=== PATIENT | male | born 1990 | race American Indian/Alaskan Native ===

== ENCOUNTER 2020-02-16 21:01 | Emergency (ER) | payer OTHER ==
[2020-02-16] MEDS ORDERED: Cyclobenzaprine 10 MG Tab PO ONE (21:28)
[2020-02-16] MEDS ORDERED: Ibuprofen 800 MG Tab PO ONE (21:28)
[2020-02-16] MEDS ORDERED: Acetaminophen 500 MG Tab PO ONE (21:28)
--- NOTE | 2020-02-16 21:28 | EDM.PDOC ---
ED HPI GENERAL MEDICAL PROBLEM - General Stated Complaint: PAIN IN BACK/NECK Time Seen by Provider: 02/16/20 21:15 Source of Information: Reports: Patient History Limitations: Reports: No Limitations - History of Present Illness INITIAL COMMENTS - FREE TEXT/NARRATIVE: Patient presented to the ED because of neck pain radiating to the occipital area. He feels intense muscle spasm of his neck and shoulder. There is no fever/chills or headache. - Related Data Allergies Allergy/AdvReac Type Severity Reaction Status Date / Time No Known Allergies Allergy Verified 02/16/20 21:14 Home Meds: Home Meds Cyclobenzaprine [Flexeril] 10 mg PO Q8H PRN #30 tab 02/16/20 [Rx] Ibuprofen 800 mg PO Q8H PRN #30 tablet 02/16/20 [Rx] ED ROS GENERAL - Review of Systems Review Of Systems: See Below Constitutional: Reports: No Symptoms HEENT: Reports: No Symptoms Respiratory: Reports: No Symptoms Cardiovascular: Reports: No Symptoms Endocrine: Reports: No Symptoms GI/Abdominal: Reports: No Symptoms : Reports: No Symptoms Musculoskeletal: Reports: Neck Pain, Muscle Stiffness Skin: Reports: No Symptoms Neurological: Reports: No Symptoms Psychiatric: Reports: No Symptoms ED EXAM, GENERAL - Physical Exam Exam: See Below Exam Limited By: No Limitations General Appearance: Alert, No Apparent Distress Eye Exam: Bilateral Eye: PERRL Ears: Normal External Exam, Normal Canal Nose: Normal Inspection, Normal Mucosa Throat/Mouth: Normal Inspection, Normal Lips, Normal Teeth Head: Atraumatic, Normocephalic Neck: Normal Inspection, Supple, Non-Tender, Full Range of Motion Respiratory/Chest: No Respiratory Distress, Lungs Clear, Normal Breath Sounds Cardiovascular: Normal Peripheral Pulses, Regular Rate, Rhythm, No Edema, No Gallop, No JVD, No Murmur GI/Abdominal: Normal Bowel Sounds, Soft, Non-Tender, No Organomegaly Back Exam: Normal Inspection, Full Range of Motion, Muscle Spasm Neurological: Alert, Oriented, CN II-XII Intact, Normal Cognition Course - Vital Signs Text/Narrative:: Flexeril 10 mg po x1 Ibuprofen 800 mg with tylenol 1000 mg po x1 Last Recorded V/S: Last Vital Signs Temp 36.7 C 02/16/20 21:10 Pulse 83 02/16/20 21:10 Resp 18 02/16/20 21:10 BP 134/90 08/15/20 21:10 Pulse Ox 93 L 02/16/20 21:10 Departure - Departure Time of Disposition: 22:00 Disposition: Home, Self-Care 01 Condition: Good Clinical Impression: Cervical strain, acute - Discharge Information Prescriptions: Cyclobenzaprine [Flexeril] 10 mg PO Q8H PRN #30 tab PRN Reason: Spasms Ibuprofen 800 mg PO Q8H PRN #30 tablet PRN Reason: Pain Sepsis Event Note (ED) - Focused Exam Vital Signs: Vital Signs Temp Pulse Resp BP Pulse Ox 02/16/20 21:10 36.7 C 83 18 134/90 93 L
== END 2020-02-16 21:50 | disposition home or self-care (01) ==
LOC: FB.ED 21:01
DX: S16.1XXA Strain of muscle, fascia and tendon at neck level, initial encounter (principal); X58.XXXA Exposure to other specified factors, initial encounter
CPT/HCPCS: 99283; A9270

== ENCOUNTER 2020-04-24 18:37 | Emergency (ER) | payer OTHER ==
[2020-04-24] MEDS ORDERED: Ketorolac 60 MG/2 ML SDV IM ONE (19:35)
[2020-04-24] MEDS ORDERED: predniSONE 10 MG Tab PO STA (19:35)
[2020-04-24] MEDS ORDERED: Cyclobenzaprine 10 MG Tab PO ONE (19:36)
--- NOTE | 2020-04-24 19:42 | EDM.PDOC ---
ED HPI GENERAL MEDICAL PROBLEM - General Chief Complaint: Back Pain or Injury Stated Complaint: SHARP PAIN IN LOWER BACK Time Seen by Provider: 04/24/20 19:15 Source of Information: Reports: Patient History Limitations: Reports: No Limitations - History of Present Illness INITIAL COMMENTS - FREE TEXT/NARRATIVE: slipped at work yesterday and landed on his gluteal region on plastic laying on concrete , States it did not hurt much yesterday but today , pay is worse , localized more to the left lower back in the paralumbar region , radiates from there to the gluteal region No radiation to the legs, no numbness or tingling in the legs , has had normal BM and urinating well Onset Date: 04/23/20 Duration: Getting Worse Location: Reports: Back Quality: Reports: Ache, Dull Severity: Moderate Improves with: Reports: Cold Therapy Worsens with: Reports: Movement Context: Reports: Trauma Associated Symptoms: Reports: No Other Symptoms Treatments 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 Neurological History: Reports: Concussion Endocrine/Metabolic History: Reports: Obesity/BMI 30+ - Infectious Disease History Infectious Disease History: Reports: Chicken Pox - Past Surgical History Musculoskeletal Surgical History: Reports: None Social & Family History - Family History Family Medical History: Noncontributory - Tobacco Use Tobacco Use Status *Q: Current Every Day Tobacco User Years of Tobacco use: 2 Packs/Tins Daily: 0.4 - Caffeine Use Caffeine Use: Reports: Coffee, Energy Drinks - Recreational Drug Use Recreational Drug Use: No ED ROS GENERAL - Review of Systems Review Of Systems: See Below Constitutional: Reports: No Symptoms HEENT: Reports: No Symptoms Respiratory: Reports: No Symptoms Cardiovascular: Reports: No Symptoms Endocrine: Reports: No Symptoms GI/Abdominal: Reports: No Symptoms Musculoskeletal: Reports: Back Pain (radiates down the left side the the lower gluteal region), Other (reduced ROM in the lower back ) Skin: Reports: No Symptoms Neurological: Reports: No Symptoms. Denies: Difficulty Walking Psychiatric: Reports: No Symptoms Hematologic/Lymphatic: Reports: No Symptoms ED EXAM,LOWER BACK PAIN/INJURY - Physical Exam Exam: See Below Exam Limited By: No Limitations General Appearance: Alert, WD/WN, No Apparent Distress Eye Exam: Bilateral Eye: EOMI Ears: Normal External Exam Nose: Normal Inspection Throat/Mouth: Normal Oropharynx Head: Atraumatic, Normocephalic Neck: Supple, Non-Tender Respiratory/Chest: No Respiratory Distress, Lungs Clear, Normal Breath Sounds Cardiovascular: Normal Peripheral Pulses, Regular Rate, Rhythm GI/Abdominal: Soft, Non-Tender Back Exam: Decreased Range of Motion, Muscle Spasm, Paraspinal Tenderness (in the left lumbar region). No: CVA Tenderness (R), CVA Tenderness (L) Extremities: Normal Inspection, Normal Range of Motion Neurological: Alert, Normal Mood/Affect Psychiatric: Normal Affect Skin Exam: Warm Course - Vital Signs Last Recorded V/S: Last Vital Signs Temp 36.8 C 04/24/20 18:51 Pulse 84 04/24/20 18:51 Resp 18 04/24/20 18:51 BP 130/86 04/24/20 18:51 Pulse Ox 98 04/24/20 18:51 - Orders/Labs/Meds Meds: Medications Discontinued Medications Generic Name Dose Route Start Last Admin Trade Name Kalq PRN Reason Stop Dose Admin Cyclobenzaprine HCl 10 mg 04/24/20 19:36 04/24/20 19:47 Flexeril PO 04/24/20 19:37 10 mg ONETIME ONE Administration Ketorolac Tromethamine 60 mg 04/24/20 19:35 04/24/20 19:48 Toradol IM 04/24/20 19:36 60 mg ONETIME ONE Administration Prednisone 40 mg 04/24/20 19:35 04/24/20 19:47 Prednisone PO 04/24/20 19:36 Not Given NOW STA Prednisone Confirm 04/24/20 19:43 04/24/20 19:47 Prednisone Administered 04/24/20 19:44 Not Given Dose 40 mg .ROUTE .STK-MED ONE Prednisone 40 mg 04/24/20 19:46 04/24/20 19:48 Prednisone PO 10/22/20 19:47 40 mg ONETIME ONE Administration - Re-Assessments/Exams Free Text/Narrative Re-Assessment/Exam: 04/24/20 19:43 pt given toradol , flexeril and prednisone will be taken off work for one day Departure - Departure Time of Disposition: 20:05 Disposition: Home, Self-Care 01 Condition: Fair Clinical Impression: Lumbar paraspinal muscle spasm, Strain of lumbar paraspinal muscle - Discharge Information *PRESCRIPTION DRUG MONITORING PROGRAM REVIEWED*: Not Applicable *COPY OF PRESCRIPTION DRUG MONITORING REPORT IN PATIENT FAZAL: Not Applicable Instructions: Muscle Cramps and Spasms, [id number], Back Injury Prevention, [id number], Lumbosacral Strain, Low Back Strain Rehab-SportsMed Referrals: PCP,None [Primary Care Provider] - Forms: ED Department Discharge, ED Return to Work/School Form Additional Instructions: 1) Cold compress to affected area every 6hrs for 10 mins for 48 hrs then switch to heat 2)Follow up with PCP if symptoms do not improve as expected Sepsis Event Note (ED) - Evaluation Sepsis Screening Result: No Definite Risk - Focused Exam Vital Signs: Vital Signs Temp Pulse Resp BP Pulse Ox 04/24/20 18:51 36.8 C 84 18 130/86 98
[2020-04-24] MEDS ORDERED: predniSONE 20 MG Tab ONE (19:43)
[2020-04-24] MEDS ORDERED: predniSONE 20 MG Tab PO ONE (19:46)
== END 2020-04-24 20:05 | disposition home or self-care (01) ==
LOC: FB.ED 18:37
DX: S39.012A Strain of muscle, fascia and tendon of lower back, initial encounter (principal); F17.210 Nicotine dependence, cigarettes, uncomplicated; E66.9 Obesity, unspecified; Z68.32 Body mass index [BMI] 32.0-32.9, adult; W01.0XXA Fall on same level from slipping, tripping and stumbling without subsequent striking against object, initial encounter; Y99.0 Civilian activity done for income or pay
CPT/HCPCS: 96372; 99283; A9270; J1885; J7512

== ENCOUNTER 2021-01-14 17:09 | Emergency (ER) | payer SELFPAY ==
[2021-01-14] MEDS ORDERED: Hydrocortisone/Neomycin/Polymyxin B Ophth Susp 7.5 ML Bottle EYEBOTH ONE (17:10)
[2021-01-14] MEDS ORDERED: traMADol 50 MG Tab PO ONE (17:10)
--- NOTE | 2021-01-14 18:09 | EDM.PDOC ---
ED HPI GENERAL MEDICAL PROBLEM - General Stated Complaint: LEFT EYE PAIN Time Seen by Provider: 01/14/21 18:04 Source of Information: Reports: Patient History Limitations: Reports: No Limitations - History of Present Illness INITIAL COMMENTS - FREE TEXT/NARRATIVE: Chip complains of left eye pain for 4 days. Insidious onset,getting worse,red. No trauma or discharge. Nothing is helping. No vomiting. Does not wear any contacts or glasses.Otherwise healthy without any medical problems.Works in [employer] - Related Data Allergies Allergy/AdvReac Type Severity Reaction Status Date / Time No Known Allergies Allergy Verified 02/16/20 21:14 Home Meds: Home Meds Cyclobenzaprine [Flexeril] 10 mg PO TID #30 tab 04/25/20 [Rx] Meloxicam 15 mg PO DAILY #30 tablet 04/25/20 [Rx] Past Medical History Musculoskeletal History: Reports: Other (See Below) Other Musculoskeletal History: History of cervical sprain. Neurological History: Reports: Concussion Endocrine/Metabolic History: Reports: Obesity/BMI 30+ - Infectious Disease History Infectious Disease History: Reports: Chicken Pox - Past Surgical History Musculoskeletal Surgical History: Reports: None Social & Family History - Family History Family Medical History: No Pertinent Family History - Caffeine Use Caffeine Use: Reports: Coffee, Energy Drinks ED ROS GENERAL - Review of Systems Review Of Systems: Comprehensive ROS is negative, except as noted in HPI. ED EXAM GENERAL W FULL EYE - Physical Exam Exam: See Below Exam Limited By: No Limitations General Appearance: Alert, WD/WN, No Apparent Distress Visual Acuity (R) 20/: 20 Visual Acuity (L) 20/: 50 With Correction: No Eyelids: Left: Erythema, Bilateral: Normal Appearance Conjunctiva & Sclera: Left: Injected Cornea Exam: Bilateral: Normal Appearance Extraocular Movements: Bilateral: Intact Pupils: Normal Accommodation Pupillary Size: Bilateral: 4 mm Pupillary Reaction: Bilateral: Brisk Anterior Chamber: Bilateral: Normal Appearance Ears: Normal External Exam Departure - Departure Time of Disposition: 18:07 Disposition: Home, Self-Care 01 Clinical Impression: Red eye - Discharge Information Referrals: PCP,None [Primary Care Provider] - - Problem List & Annotations (1) Red eye SNOMED Code(s): 56340062 Code(s): H57.89 - OTHER SPECIFIED DISORDERS OF EYE AND ADNEXA Status: Acute Current Visit: Yes - Problem List Review Problem List Initiated/Reviewed/Updated: Yes - Assessment/Plan Plan: Etiology is unclear. I doubt angle closure glaucoma -especially due to insidious onset and duration. I will DC home with antibiotics and Tramadol. See Optometry /Ophthalmology tomorrow at the S
== END 2021-01-14 18:30 | disposition home or self-care (01) ==
LOC: FB.ED 17:09
DX: H57.89 Other specified disorders of eye and adnexa (principal); E66.9 Obesity, unspecified; Z68.30 Body mass index [BMI] 30.0-30.9, adult
CPT/HCPCS: 99283; A9270

== ENCOUNTER 2021-12-18 12:15 | Emergency (ER) | payer OTHER | END 2021-12-18 13:10 | disposition home or self-care (01) | LOC: FB.ED 12:15 | DX: S90.32XA Contusion of left foot, initial encounter (principal); W20.8XXA Other cause of strike by thrown, projected or falling object, initial encounter | CPT/HCPCS: 99283 ==